=== PATIENT | male | born 1965 | race Caucasian/White ===

== ENCOUNTER 2018-10-17 23:34 | Inpatient (IN) | payer BC ==
[~2018-10-17] VITALS: Ht 175.3 cm; Wt 96.2 kg
[2018-10-17 23:55] VITALS: Ht 175.3 cm; Wt 96.2 kg
--- NOTE | 2018-10-18 01:01 | NUR ---
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 PT REPORTS PAIN IN MUQ. PT REPORTS EATING FISH TACOS AT 1600 AND THE PAIN BEGAN AT 2100. PT DENIES ANY CHANGE OF DIET RECENTLY OR FOOD ALLERGIES. PT STS THAT HE HAS VOMITED 5 TIMES AIRPORT ATTENDANT AND HAS NAUSEA. PT DENIES ANY DIARRHEA. PT IS A/O X4. PT RESPS ARE E/U. PT IS ABLE TO AMBULATE SLOWLY WITH STEADY GAIT/ NO ACD NOTED
[2018-10-18 01:13] LABS: BASOPHIL % 0.6 % (0-2); PLATELET COUNT 209 x10^3mcL (130-400)
[2018-10-18 01:25] LABS: CALCIUM 8.3 mg/dL (8.5-10.1); CARBON DIOXIDE 29.3 mmol/L (21-32); CHLORIDE SERUM 102 mmol/L (98-107); CREATININE SERUM 1.2 mg/dL (0.7-1.3); GFR1 > 60 mL/min; GLUCOSE SERUM 142 mg/dL (74-106); POTASSIUM SERUM 3.3 mmol/L (3.5-5.1); SODIUM SERUM 137 mmol/L (136-145)
[2018-10-18 01:29] LABS: ALBUMIN 3.9 g/dL (3.4-5.0); ALKALINE PHOSPHATASE 105 U/L (46-116); ALT/SGPT 46 U/L (16-63); AST/SGOT 24 U/L (15-37); BILIRUBIN TOTAL 1.43 mg/dL (0.20-1.00); LIPASE 107 IU/L (73-393); TOTAL PROTEIN, SERUM 7.1 g/dL (6.4-8.2)
--- NOTE | 2018-10-18 02:04 | NUR ---
PORTABLE ULTRASOUND AT BEDSIDE
--- NOTE | 2018-10-18 02:37 | NUR ---
PT RESTING IN ED GURNEY IN POSITION OF COMFORT. PT RESPS ARE E/U. NO ACD NOTED
[2018-10-18] MEDS ORDERED: ZESTRIL20 MG (02:58)
[2018-10-18] MEDS ORDERED: ACYCLOVIR200 MG (02:59)
--- NOTE | 2018-10-18 04:00 | NUR ---
GAVE PT REPORT TO TERRY ON MED SURG FLOOR WHO WILL ASSUME PRIMARY CARE OF PT ONCE ADMITTED TO ROOM 223B
--- NOTE | 2018-10-18 04:01 | NUR ---
PT WHEELED OUT OF ED VIA WHEELCHAIR BY JANICE MARTÍNEZ. PT ADMITTED TO MED SURG FLOOR FOR FURTHER CARE. NO INCIDENT NOTED
[2018-10-18 04:22] LABS: CHOLESTEROL/HDL RATIO 5.9; MAGNESIUM 2.1 mg/dL (1.8-2.4); PHOSPHOROUS 2.5 mg/dL (2.5-4.9)
[2018-10-18 04:30] LABS: T3 TOTAL 1.16 ng/mL
[2018-10-18 04:35] LABS: FREE T4 1.09 ng/dL (0.76-1.46); FREE THYROXINE INDEX 3.1 ug/dL (1.4-4.5); T4(THYROXINE) 8.5 ug/dL (4.7-13.3)
[2018-10-18 04:47] VITALS: BP 138/92
--- NOTE | 2018-10-18 05:09 | NUR ---
RECEIVED PT VIA WHEELCHAIR FROM ED, PT ACCOMPANIED BY NURSE. PT AOX4, DENIES HAGER/DIZZINESS. MEDSURG PT, DENIES CP. RESP EVEN AND UNLABORED ON RA, DENIES SOB. PT REPORTS HE ATE TACOS (FISH/SHRIMP) AT 5:30PM ON 10/17/18 AND AROUND 9:00PM PT REPORTS HE HAS VOMITED X2 AT HOME (LARGE AMOUNTS) AND WHILE IN THE ER WAITING ROOM HE VOMITED X2. PT REPORTS HE HAS SUBJECTIVE FEVER ACCOMPANIED WITH THE NAUSEA. PT REPORTS BM X2 THAT WAS HARD WHILE AT HOME. PT REPORTS AN UNCOMFORTABLE FEELING WHICH BROUGHT HIM TO THE HOSPITAL. AMBULATORY. SKIN INTACT. DENIES PAIN AT THIS TIME. IV SITE TO RFA NS @ 100/HR. NO REDNESS, SWELLING OR PAIN NOTED. PT CAME UP ON FLAGYL. ALL COMFORT AND SAFETY MEASURRES PROVIDED FOR, PT ORIENTED TO ROOM AND CALL LIGHT, CALL LIGHT WITHIN REACH, BED IN LOWST POSITION, WILL CONTINUE TO MONITOR.
[2018-10-18 07:25] LABS: CALCIUM 8.1 mg/dL (8.5-10.1); CARBON DIOXIDE 28.1 mmol/L (21-32); CHLORIDE SERUM 104 mmol/L (98-107); CREATININE SERUM 1.1 mg/dL (0.7-1.3); GFR1 > 60 mL/min; GLUCOSE SERUM 117 mg/dL (74-106); POTASSIUM SERUM 4.3 mmol/L (3.5-5.1); SODIUM SERUM 139 mmol/L (136-145)
--- NOTE | 2018-10-18 07:35 | NUR ---
RECEIVED PT FROM INDUSTRIAL TECHNOLOGY TEACHER. PT AWAKE, ALERT. A/OX4. PT ON ROOM AIR WITH NO RESP DISTRESS NOTED AT THIS TIME. PT DENIES HEADACE, PAIN OR NAUSEA AT THIS TIME. IV ACCESS RIGHT FA C/D/I INFUSING NS @100 ML/HR. ACTIVE BOWEL SOUNDS NOTED. LAST BM LAST NIGHT SLIGHTLY HARD PER PATIENT. PT AMBULATORY. SAFETY MEASURES IN PLACE. BED LOW AND LOCKED. CALL LIGHT WITHIN REACH.
--- NOTE | 2018-10-18 07:40 | NUR ---
ALL CARE ENDORSED TO DAYSHIFT NURSE, NO ACUTE DISTRESS NOTED. ALL COMFORT AND SAFETY MEASURES PROVIDED FOR, ALL QUESTIONS AND CONCERNS ADDRESSED.
[2018-10-18 07:56] LABS: BASOPHIL % 0.3 % (0-2); PLATELET COUNT 194 x10^3mcL (130-400); RED CELL DISTRIBUTION WIDTH 14.2 % (11.5-14.5)
[2018-10-18 08:19] LABS: microscopic required? YES; urine erythrocyte NEGATIVE (NEGATIVE)
--- NOTE | 2018-10-18 09:31 | NUR ---
CONSENT SIGNED FOR PROCEDURE.
[2018-10-18 10:19] VITALS: BP 123/88
--- NOTE | 2018-10-18 10:31 | NUR ---
PT PICKED UP FOR SURGERY
--- NOTE | 2018-10-18 13:45 | NUR ---
PT BACK FROM SURGERY. AWAKE, ALERT A/0X4. VSS. PT DENIES PAIN AT THIS TIME. FAMILY AT BEDSIDE. NO ACUTE DISTRESS OR DISCOMFORT NOTED. SAFETY MEASURES MAINTAINED.
[2018-10-18 13:54] VITALS: BP 111/69
--- NOTE | 2018-10-18 15:37 | NUR ---
PT COMPLAINING OF PAIN 5/10 IN ABDOMEN. NORCO ADMINISTERED ORDERED PRN (SEE EMAR) PT COMPLAINING OF SLIGHT NAUSEA, ZOFRAN ADMINISTERED ORDERED PRN (SEE EMAR). WILL CONTINUE TO MONITOR.
[2018-10-18 16:37] VITALS: BP 127/81
--- NOTE | 2018-10-18 18:24 | NUR ---
PT STABLE AT THIS TIME. NO ACUTE DISTRESS OR DISCOMFORT NOTED. ALL NEEDS TENDED TO THROUGHOUT SHIFT. SAFETY MAINTAINED. WILL CONTINUE TO MONITOR AND ENDORSE CARE TO REHABILITATION SERVICES COUNSELOR.
--- NOTE | 2018-10-18 19:10 | NUR ---
PT RECEIVED A/O X4, ABLE TO MAKE NEEDS KNOWN. SPOUSE AT BEDSIDE. MED-SURG, PT DENIES CP/PRESSURE. PULSES PALPABLE, NO EDEMA PRESENT. LUNG SOUNDS DIM TO MATTHIAS BASES, BREATHING IS EVEN AND UNLABORED ON RA, DENIES SOB, NO RESP DISTRESS NOTED. ABD SOFT AND ROUND, BOWEL TONES ACTIVE X4 QUAD, ADMITS TO NAUSEA, WILL MEDICATE WITH PRN ANTIEMETIC. PT IS S/P LAP TISHA. INCISIONS WITH SONIYA AND BANDAIDS X3, MOD DRIED BLOODY SATURATION NOTED TO BANDAID BY UMBILICUS. EMMA DRAIN IN PLACE TO RT SIDE OF ABD, DRESSING CDI; EMMA EMPTIED-50 ML SEROSANGUINEOUS, EMMA CLAMPED TO SUCTION. PT DENIES PASSING GAS, BURPING, OR HAVING A BM POST-OP. PT ADMITS TO VOIDING AND WALKING POSTOP. PT DENIES PAIN AT THIS TIME. IVF INFUSING WELL TO RFA, SITE WNL. BED IN LOWEST SETTING, SIDE RAILS UP X2, CALL LIGHT WITHIN REACH. WILL CONT TO MONITOR.
--- NOTE | 2018-10-18 20:37 | NUR ---
PT C/O NAUSEA, PRN ZOFRAN IVP GIVEN ORDERED. EMESIS BAG PROVIDED. NO ACUTE DISTRESS NOTED. WILL CONT TO MONITOR.
[2018-10-18 20:55] VITALS: BP 109/67
--- NOTE | 2018-10-19 00:32 | NUR ---
PT RESTING IN BED WITH EYES CLOSED, BUT IS EASILY AROUSABLE. BREATHING IS EVEN AND UNLABORED, NO RESP DISTRESS NOTED. PT DENIES ANY PAIN AT THIS TIME. PT ALSO DENIES ANY N/V, WITH GOOD RELIEF FROM ZOFRAN. IVF INFUSING WELL, SITE WNL. NO ACUTE DISTRESS OBSERVED. CALL LIGHT WITHIN REACH. WILL CONT TO MONITOR.
[2018-10-19 05:30] VITALS: BP 94/64
--- NOTE | 2018-10-19 05:42 | NUR ---
PT REPORTS SWELLING TO RFA. IV SITE IS SWOLLEN WITH NO REDNESS OBSERVED. IV TO RFA DC'd, CATH INTACT. WARM COMPRESS APPLIED AND RT ARM ELEVATED. DR NESS MADE AWARE. DR NESS AT BEDSIDE TO ASSESS PT. PER DR NESS, "NO NEED FOR US AT THIS TIME. CONT TO ELEVATED ARM, APPLY WARM COMPRESS, AND MONITOR." CHARGE NURSE-MAMI AWARE.
[2018-10-19 06:11] LABS: CALCIUM 8.3 mg/dL (8.5-10.1); CARBON DIOXIDE 27.7 mmol/L (21-32); CHLORIDE SERUM 106 mmol/L (98-107); CREATININE SERUM 1.3 mg/dL (0.7-1.3); GFR1 > 60 mL/min; GLUCOSE SERUM 106 mg/dL (74-106); POTASSIUM SERUM 4.6 mmol/L (3.5-5.1); SODIUM SERUM 141 mmol/L (136-145)
[2018-10-19 06:22] LABS: BASOPHIL % 0.2 % (0-2); PLATELET COUNT 196 x10^3mcL (130-400); RED CELL DISTRIBUTION WIDTH 14.5 % (11.5-14.5)
[2018-10-19 06:51] LABS: BILIRUBIN DIRECT 0.26 mg/dL (0.0-0.2); BILIRUBIN TOTAL 1.83 mg/dL (0.20-1.00); TOTAL PROTEIN, SERUM 6.4 g/dL (6.4-8.2)
[2018-10-19 06:52] LABS: ALBUMIN 3.3 g/dL (3.4-5.0)
--- NOTE | 2018-10-19 07:12 | NUR ---
PT SLEPT WELL THROUGHOUT THE EVENING. BREATHING IS EVEN AND UNLABORED, NO RESP DISTRESS NOTED. PT DENIES HAVING ANY PAIN AT THIS TIME. PT REPORTS PASSING GAS AND BURPING POST-OP, BUT DENIES HAVING A BM. DRESSING TO ABD IN PLACE, CDI. EMMA DRAIN OUTPUT: 70 ML SEROSANGUINEOUS. RIGHT ARM REMAINS ELEVATED WITH WARM COMPRESS IN PLACE. IVF INFUSING WELL TO LW, SITE FREE FROM REDNESS OR SWELLING. ALL NEEDS MET. CALL LIGHT WITHIN REACH. CONTINUITY OF CARE ENDORSED TO SHERIF ONOFRE. ALL QUESTIONS AND CONCERNS ADDRESSED.
--- NOTE | 2018-10-19 07:20 | NUR ---
RECEIVED PATIENT FROM LITIGATION COUNSEL NURSE. PATIENT WAS RESTING COMFORTABLY IN BED. RESPIRATIONS EVEN NOT LABORED, NO DISTRESS NOTED. PATIENT IS A/A/O X4. PATIENT IS AMBULATORY WITH BRP. IV TO LEFT WRIST CDI, INFUSING WELL. ALL QUESTUIONS AND CONCERNS ADDRESSED, BED RAILS UP X2, BED IN LOW POSITION SAFETY PRECAUTIONS MAINTAINED.
[2018-10-19 09:00] VITALS: BP 122/79
--- NOTE | 2018-10-19 09:11 | NUR ---
ADMINISTERED AM MEDICATIONS PATIENT STATED PAIN INCREASED AFTER SITTING UP FOR BREAKFAST. PAIN MEDICATION ADMINISTERED. TOLORATED WELL.
--- NOTE | 2018-10-19 11:24 | NUR ---
PATIENT SEEN RESTING COMFORTABLY IN BED. PATIENT DENIES PAIN AT THIS TIME. HAS A VISITOR AT BED SIDE. ALL QUESTIONS AND CONCERNS ADDRESSED. PATIENT WAS EDUCATED ON USE OF INCENTIVE SPIROMETER AND SPLINTING ABD WITH PILLOW WHEN COUGHING. PATIENT VERBALIZED UNDERSTANDING. BED IN LOW POSITION, BED RAILS UP X2 CALL LIGHT WITH REACH SCD'S IN PLACE. SAFETY MEASURES IN PLACE.
--- NOTE | 2018-10-19 11:41 | NUR ---
PROVIDED PATIENT ICE PACK FOR RIGHT UPPER EXTREMITY SWELLING. AWAITING ULTRASOUND AT THIS TIME. ALL NEEDS ATTENDED TO. WILL CONTINUE TO MONITOR
--- NOTE | 2018-10-19 11:43 | NUR ---
PATIENT SEEN RESTING COMFORTABLY IN BED. ULTRASOUND AT BEDSIDE TO PERFORM US OF RIGHT UPPER EXTREMITY. ALL QUESTIONS AND CONCERNS ADDRESSED. SAFETY PRECAUTIONS MAINTAINED.
--- NOTE | 2018-10-19 13:07 | NUR ---
PATIENT SEEN RESTING COMFORTABLY IN BED. HE IS EATING LUNCH, FIRST SOLID FOOD SINCE LAP APPY ON 10/18/18. HE IS TOLORATING REGULAR DIET WELL. ALL QUESTIONS AND CONCERNS ADDRESSED. ADVISED TO USE CALL LIGHT TO CALL IF NECESSARY. SAFETY PRECAUTIONS MAINTAINED. IV INFUSING WELL SITE IS CDI AND FREE OF REEDNESS PATIENT DENIES PAIN.
--- NOTE | 2018-10-19 14:41 | NUR ---
ADMINISTERED PAIN MEDICATION (SEE EMAR) FOR MODERATE PAIN. THE PAtIENT TOLORATED WELL IS IN BED RESTING WITH FAMILY AT BEDSIDE.
--- NOTE | 2018-10-19 14:43 | NUR ---
PATIENT IS RESTIING IN BED WITH FAMILY AT BEDSIDE. IV IS INFUSING WELL IS CDI NO REDNESS NOTED. RESPIRATIONS EVEN NOT LABORED SCD'S IN PLACE ALL QUESTIONS AND CONCERNS ADDRESSED SAFETY PRECAUTIONS MAINTAINED. EDUCATED PATIENT ABOUT INSENTIVE SPIROMETER USE AND USE OF PILLOW TO SPLINT ABD WHEN COUGHING.
--- NOTE | 2018-10-19 15:33 | NUR ---
SPOKE TO ULTRASOUND AT THIS TIME REGARDING RESULTS TO [facility]V OF RIGHT UPPER EXTREMITY. PER COTTON PICKING MACHINE OPERATOR, SHE WILL CLARIFY RESULTS. AWAITING CALL BACK. WILL CONTINUE TO MONITOR PATIENT
[2018-10-19 17:26] VITALS: BP 93/58
--- NOTE | 2018-10-19 17:46 | NUR ---
PATIENT SEEN SITTING COMFORTABLY IN BED EATING DINNER. RESPIRATIONS EVEN NOT LABORED, NO DISTRESS NOTED. IV IS INFUSING WELL SITE CDI. BED IN LOW POSITION, BED RAILS UP X2 PATIENT DENIES PAIN AT THIS TIME. ALL QUESTIONS AND CONCERNS ADDRESSED, CALL LIGHT WITHIN REACH ADVISED TO CONTINUE USE OF INCENTIVE SPIROMETER, SPLINT ABD WITH PILLOW WHEN COUGHING.
--- NOTE | 2018-10-19 17:54 | NUR ---
P.T. NOTES P.T. EVAL COMPLETED; REFER TO EVAL FOR DETAILS; NURSING TO AMBULATE PATIENT AD ANDREA; O2 SAT ROOM AIR=96%
--- NOTE | 2018-10-19 18:57 | NUR ---
PATIENT C/O 9/10 SIDE PAIN AT THIS TIME. PATIENT MEDICATED WITH PRN TORADOL. PATIENT TOLERATED WELL. NO ADVERSE EFFECTS NOTED
[2018-10-19 19:02] VITALS: BP 104/64
--- NOTE | 2018-10-19 19:23 | NUR ---
PATIENT SEEN RESTING COMFORTABLY IN BED NO APPARENT DISTRESS OR DISCOMFORT NOTED, BEDSIDE REPORT GIVEN TO IRAM. IV PATENT AND INTACT DRESSING TO ABDOMEN CLEAN AND DRY. EMMA DRAIN DRAINING TO SUCTION. ALL QUESTIONS AND [id number] ADDRESSED SAFETY PRECAUTIONS MAINTAINED ALL NEEDS ATTENDED TO ENDORSED ALL CARE TO INFORMATION SYSTEMS DIRECTOR NURSE.
--- NOTE | 2018-10-19 19:52 | NUR ---
RECEIVED PT FROM DAY SHIFT RN. PT IS AA&O X4 AND ABLE TO FOLLOW COMMANDS. NO SIGNS OF CHEST PAIN OR SHORTNESS OF BREAHT UPON ASSESSMENT. THERE IS A LEFT WRIST IV THAT IS CLEAN DRY AND INTACT AT THIS TIME. SAFETY MEASURES ARE IN PLACE. CALL LIGHT IS WITHIN REACH. WILL CONTINUE TO MONITOR.
[2018-10-19 21:11] VITALS: BP 105/61
--- NOTE | 2018-10-20 00:38 | NUR ---
NORCO ADMINISTERED FOR PAIN 02/25 I ABDOMEN. WILL. REASSESS.
--- NOTE | 2018-10-20 03:13 | NUR ---
PT RESTING IN BED. NO FACIAL GRIMMACING OR SIGNS OF DISTRESS NOTED. CALL LIGHT IS WITHIN REACH.
[2018-10-20 05:38] VITALS: BP 98/60
--- NOTE | 2018-10-20 06:55 | NUR ---
PT SLEPT THROUGHOUT THE NIGHT. PT DENIES CHEST PAIN OR SHORTNESS OF BREATH AT THIS TIME. SAFETY MEASURES ARE IN PLACE. CALL LIGHT IS WITHIN REACH. WILL ENDORSE TO DAY SHIFT RN.
[2018-10-20 07:27] LABS: CALCIUM 7.7 mg/dL (8.5-10.1); CARBON DIOXIDE 28.8 mmol/L (21-32); CHLORIDE SERUM 108 mmol/L (98-107); CREATININE SERUM 1.1 mg/dL (0.7-1.3); GFR1 > 60 mL/min; GLUCOSE SERUM 83 mg/dL (74-106); POTASSIUM SERUM 4.4 mmol/L (3.5-5.1); SODIUM SERUM 142 mmol/L (136-145)
[2018-10-20 07:37] LABS: BASOPHIL % 0.4 % (0-2); PLATELET COUNT 172 x10^3mcL (130-400)
[2018-10-20 07:42] LABS: BILIRUBIN DIRECT 0.18 mg/dL (0.0-0.2); BILIRUBIN TOTAL 0.84 mg/dL (0.20-1.00)
[2018-10-20 07:45] LABS: ALBUMIN 2.9 g/dL (3.4-5.0); TOTAL PROTEIN, SERUM 5.7 g/dL (6.4-8.2)
--- NOTE | 2018-10-20 08:00 | NUR ---
RECEIVED PATIENT ALERT AND ORIENTED TIMES FOUR. REQUESTED TYLENOL FOR HEADACHE AND GAVE HIS OTHER MEDCATION ORDERED. HELD THE BP MEDICATION DUE TO LOW BP. PATIENT UNDERSTANDS THE RATIONAL FOR THIS. IV INTACT AND PATIENT AHS BEEN ON IV FLUIDS PRIOR BUT NOW HEPLOCKED INDICATED. PATIENT AHS SCDS IN PLACE AND A EMMA TO DRAINAGE AND SEROUS SANGUINOUS FLUIDS. PATIENT AHS BEEN OOB AND TOLERATED WELL. HE WAS GIVEN THE TYLNEOL FOR A HEADACHE AD HE STATES ON AND OFF PAIN TO THE RIGHT FLANK ALEXA. PATIENT HAS BEEN WITH ON AND OFF COMPLAINTS TO THE RIGHT FLANK AREAS VITALS AT THIST MICHELE AT 98.60, 98.3, 52, 20, 97% ON ROOM AIR.
[2018-10-20 10:14] VITALS: BP 119/85
--- NOTE | 2018-10-20 10:30 | NUR ---
DR JIMENEZ IN AND REMOVED EMMA DRAIN AND 40CC OUTPUT IN THE DRAINN AT THAT TIME. DRESSED WITH TWO BY TWOS ADN THE OTHER SITES HE REMOVED THE BANDAIDS AND NOW OPEN TO AIR. DENIES THE NEED FOR PAIN MEDICATIONS AT THIS TIME.
--- NOTE | 2018-10-20 12:39 | NUR ---
BP IS UP NOW AND WILL GIVE THE LISOPRIL ORDERED. JOSE E HAS REFUSED NORCO OR TORADOL FOR PAIN. WILL CONTINUE TO MONITOR.
--- NOTE | 2018-10-20 13:09 | NUR ---
GAVE TYLENOL FOR PAIN AND WILL MONITOR FOR EFFECTIVENESS. HE IS TRYING TO TAKE NO IV OR NARCOTICS AT THIS TIME. STATES THE REMOVEL OF THE EMMA HAS LESSENED HIS DISCOMFORT TO THE RIGHT SIDE HE PREVIOUSLY COMPLAINED OF.
--- NOTE | 2018-10-20 17:00 | NUR ---
TOLERATED DIET AND HAS NOT COMPLAINED OF PAIN AT THIS TIME. TYLENOL WAS EFFECTIVE EARLIER AND HE HAS BEEN PASSING GAS WELL. AMBULATING AND USUING THE SPIROMETER INSTRUCTED.
[2018-10-20 17:32] VITALS: BP 121/78
--- NOTE | 2018-10-20 19:40 | NUR ---
RECEIVED PT FROM DAY SHIFT RN. PT IS AA&O X4 AND ABLE TO FOLLOW COMMANDS. PT DENIES CHEST PAIN OR SHORTNESS OF BREATH AT THIS TIME. PT IS ON ROOM AIR WITH NO SIGNS OF LABORED BREATHING OR USE OF ACCESSORY MUSCLES. THERE IS A LEFT WRIST IV THAT IS CLEAN DRY AND INTACT. SAFETY MEASURES ARE IN PLACE. CALL LIGHT IS WITHIN REACH. WILL CONTINUE TO MONITOR.
[2018-10-20 20:48] VITALS: BP 133/94
--- NOTE | 2018-10-21 03:48 | NUR ---
PT RESTING IN BED. NO FACIAL GRIMMACING. NO SIGNS OF DISTRESS NOTED. CALL LIGHT IS WITHIN REACH.
--- NOTE | 2018-10-21 05:12 | NUR ---
PT SLEPT THROUGHOUT THE NIGHT. DENIES CHEST PAIN OR SHORTNESS OF BREATH. SAFETY MEASURES ARE IN PLACE. CALL LIGHT IS WITHIN REACH. WILL ENDORSE TO DAY SHIFT RN.
[2018-10-21 05:56] VITALS: BP 135/91
[2018-10-21 06:15] LABS: BASOPHIL % 0.7 % (0-2); PLATELET COUNT 191 x10^3mcL (130-400); RED CELL DISTRIBUTION WIDTH 14.2 % (11.5-14.5)
[2018-10-21 06:42] LABS: CALCIUM 8.1 mg/dL (8.5-10.1); CARBON DIOXIDE 22.7 mmol/L (21-32); CHLORIDE SERUM 108 mmol/L (98-107); CREATININE SERUM 1.1 mg/dL (0.7-1.3); GFR1 > 60 mL/min; GLUCOSE SERUM 98 mg/dL (74-106); POTASSIUM SERUM 4.5 mmol/L (3.5-5.1); SODIUM SERUM 140 mmol/L (136-145)
--- NOTE | 2018-10-21 07:40 | NUR ---
PT IS AAOX4. DENIES H/A OR DIZZINESS. RESP EVEN AND UNLABORED. LUNG SOUNDS CTA. NO R/A. NO COUGH OR SOB. NORMAL S1S2 NOTED. ABDOMEN, SOFT, TENDER, NONDISTENDED. BOWEL SOUNDS ACTIVE. PT HAS 3 SURGICAL INCISIONS. TWO MEDIAL ABDOMNINAL INCISION CLOSED WITH SONIYA,STATE DIRECTOR. SITE WNL. ONE LOWER R QUAD SURGICAL INCISION CLOSED WITH SUTURES COVERED W CDI DRESSING. NO INFECTION NOTED TO ALL SITES. IV CATH TO L WRIST N/S LOCKED, SITE WNL. PT DENIES PAIN OR DISCOMFORT AT THIS TIME. CALL LIGHT WITHIN REACH. BED IN LOWEST POSITION.
[2018-10-21 07:51] VITALS: BP 121/81
--- NOTE | 2018-10-21 09:57 | NUR ---
NORCO 7.5/325 PO GIVEN FOR THROBBING MOUTH, TONGUE AND HEADACHE 12/26. FLUIDS ENCOURAGED. DUE MEDS GIVEN. B/P 121/81. CALL LIGHT WITHIN REACH.
[2018-10-21 10:14] VITALS: BP 121/81
--- NOTE | 2018-10-21 11:00 | NUR ---
PT IS SITTING UP AT BEDSIDE VISITING WITH . PT STATES MOUTH PAIN IS MUCH BETTER. RESP EVEN AND UNLABORED. NO DISTRESS NOTED. CALL LIGHT WITHIN REACH.
--- NOTE | 2018-10-21 13:30 | NUR ---
PT DISCHARGED TO HOME IN NO DISTRESS. DISCHARGE INSTRUCTIONS REVIEWED. ALL FORMS SIGNED. RX GIVEN TO PT. IV CATH TO L WRIST REMOVED INTACT. SITE WNL, COVERED WITH GAUZE AND BANDAID. VS: 97.9, 65, 18, 121/81, 98% ON R/A. PT DENIES PAIN OR DISCOMFORT AT TIME OF D/C. ALL PERSONAL BELONGINGS TAKEN HOME.
== END 2018-10-21 13:21 | disposition home or self-care (01) | DRG 417 ==
LOC: ED 23:34 → MU 10-18 02:49
PROVIDERS: Emergency Medicine; Family Medicine; Surgery; ADMIT Internal Medicine
PROC: 0FT44ZZ Resection of Gallbladder, Percutaneous Endoscopic Approach (ICD-10-PCS; principal; 2018-10-18 10:15)
DX: K80.62 Calculus of gallbladder and bile duct with acute cholecystitis without obstruction (principal); K65.9 Peritonitis, unspecified; I10 Essential (primary) hypertension; E87.6 Hypokalemia; E78.5 Hyperlipidemia, unspecified; A60.00 Herpesviral infection of urogenital system, unspecified; Z68.30 Body mass index [BMI] 30.0-30.9, adult; E78.00 Pure hypercholesterolemia, unspecified; Z79.899 Other long term (current) drug therapy; E83.51 Hypocalcemia
CPT/HCPCS: 84439; 94150; J0690; J0696; J1885; J2250; J2270; J2405; J2543; J2704; J2710; J3010; J3490; J7030; J7120; Q0092

== ENCOUNTER 2018-10-23 10:31 | Emergency (ER) | payer BC | END 2018-10-23 17:08 | disposition home or self-care (01) | LOC: ED 10:31 ==

== ENCOUNTER 2018-11-01 21:06 | Emergency (ER) | payer BC ==
[~2018-11-01] VITALS: Ht 175.3 cm; Wt 91.8 kg
[~2018-11-01 21:06] MED LIST: ACYCLOVIR200 MG; ZESTRIL20 MG
[2018-11-01 21:12] VITALS: Ht 175.3 cm; Wt 91.8 kg
[2018-11-01 23:30] LABS: BASOPHIL % 0.8 % (0-2); PLATELET COUNT 276 x10^3mcL (130-400); RED CELL DISTRIBUTION WIDTH 13.9 % (11.5-14.5)
[2018-11-01 23:39] LABS: CALCIUM 7.8 mg/dL (8.5-10.1); CARBON DIOXIDE 29.6 mmol/L (21-32); CHLORIDE SERUM 102 mmol/L (98-107); CREATININE SERUM 1.1 mg/dL (0.7-1.3); GFR1 > 60 mL/min; GLUCOSE SERUM 115 mg/dL (74-106); POTASSIUM SERUM 3.7 mmol/L (3.5-5.1); SODIUM SERUM 136 mmol/L (136-145)
[2018-11-01 23:44] LABS: ALBUMIN 3.3 g/dL (3.4-5.0); ALKALINE PHOSPHATASE 132 U/L (46-116); ALT/SGPT 77 U/L (16-63); AST/SGOT 54 U/L (15-37); BILIRUBIN TOTAL 0.93 mg/dL (0.20-1.00); TOTAL PROTEIN, SERUM 6.9 g/dL (6.4-8.2)
[2018-11-02 02:10] VITALS: BP 133/103
== END 2018-11-02 02:18 | disposition home or self-care (01) ==
LOC: ED 21:06
PROVIDERS: Emergency Medicine
DX: J40 Bronchitis, not specified as acute or chronic (principal); I10 Essential (primary) hypertension; E78.00 Pure hypercholesterolemia, unspecified; Z90.49 Acquired absence of other specified parts of digestive tract
CPT/HCPCS: 83880; 85378; J7030; Q0092; Q0169; Q9967

== ENCOUNTER 2020-05-09 16:58 | Emergency (ER) | payer BC ==
[~2020-05-09] VITALS: Ht 175.3 cm; Wt 93.4 kg
[2020-05-09 17:00] VITALS: Ht 175.3 cm; Wt 93.4 kg
[2020-05-09 19:23] LABS: BASOPHIL % 1.5 % (0-2); PLATELET COUNT 213 x10^3mcL (130-400); RED CELL DISTRIBUTION WIDTH 14.1 % (11.5-14.5)
[2020-05-09 19:24] LABS: CALCIUM 8.3 mg/dL (8.5-10.1); CARBON DIOXIDE 29.3 mmol/L (21-32); CHLORIDE SERUM 101 mmol/L (98-107); CREATININE SERUM 1.2 mg/dL (0.7-1.3); GFR1 > 60 mL/min; GLUCOSE SERUM 89 mg/dL (74-106); POTASSIUM SERUM 3.8 mmol/L (3.5-5.1); SODIUM SERUM 136 mmol/L (136-145)
[2020-05-09 19:29] LABS: ALBUMIN 3.9 g/dL (3.4-5.0); ALKALINE PHOSPHATASE 123 U/L (46-116); ALT/SGPT 29 U/L (16-63); AST/SGOT 25 U/L (15-37); BILIRUBIN TOTAL 1.7 mg/dL (0.20-1.00); TOTAL PROTEIN, SERUM 7.1 g/dL (6.4-8.2)
[2020-05-09 20:25] VITALS: BP 133/65
== END 2020-05-09 20:25 | disposition home or self-care (01) ==
LOC: ED 16:58
PROVIDERS: Emergency Medicine
DX: R06.00 Dyspnea, unspecified (principal); R20.2 Paresthesia of skin; I10 Essential (primary) hypertension; E78.00 Pure hypercholesterolemia, unspecified; Z90.49 Acquired absence of other specified parts of digestive tract
CPT/HCPCS: 83880; 85378; Q0092